=== PATIENT | female | born 1995 | race Two or more races ===

== ENCOUNTER 2017-01-27 10:40 | Emergency (ER) | payer MEDICAID ==
[2017-01-27 12:42] VITALS: BP 110/59
--- NOTE | 2017-01-27 13:23 | ED Physician Documentation ---
History of Present Illness - Stated complaint Stated Complaint: HEADACHE/VISION CHANGE 8WKS PREG - Chief complaint Chief Complaint: Neuro - History obtained from History obtained from: Patient (Pt is 8 weeks EGA wih second child and has a headache. she staes that she has had headaches in the past but has not had one in years. She states that she had pre-e on her first and came in today to have her HTN checked.) Review of Systems Constitutional: denies: Fever, Chills Eyes: denies: Loss of vision, Photophobia Ears: denies: Ear pain, Tinnitus/ringing Throat: denies: Sore throat Cardiac: denies: Chest pain / pressure, Palpitations Respiratory: denies: Dyspnea, Cough, Hemoptysis, Wheezing GI: denies: Abdominal Pain, Nausea, Vomiting, Constipation, Diarrhea : denies: Dysuria, Frequency Skin: denies: Rash, Lesions Musculoskeletal: denies: Neck pain, Back pain Neurologic: reports: Headache. denies: Altered mental status, Head injury, LOC PD PAST MEDICAL HISTORY - Past Surgical History Past Surgical History: No - Present Medications Home Medications: Ambulatory Orders Medication Instructions Recorded Confirmed Pnv No.122/Iron/Folic Acid 1 tab PO DAILY 01/27/17 01/27/17 [ Multi Tablet] - Allergies Allergies/Adverse Reactions: Allergies Allergy/AdvReac Type Severity Reaction Status Date / Time No Known Drug Allergies Allergy Verified 04/19/15 23:01 - Social History Does the pt smoke?: No Smoking Status: Never smoker Does the pt drink ETOH?: No Does the pt have substance abuse?: No - POLST Patient has POLST: No PD ED PE NORMAL - Vitals Vital signs reviewed: Yes - General General: Alert and oriented X 3, No acute distress, Well developed/nourished - HEENT HEENT: Atraumatic, PERRL, EOMI, Ears normal, Moist mucous membranes - Cardiac Cardiac: RRR, No murmur - Respiratory Respiratory: No respiratory distress, Clear bilaterally - Abdomen Abdomen: Non tender, Non distended - Back Back: No CVA TTP - Derm Derm: Normal color, Warm and dry, No rash - Extremities Extremities: No deformity, No edema - Neuro Neuro: Alert and oriented X 3, occupational health nurse manager 2-12 intact, No motor deficit, No sensory deficit, Normal speech Eye Opening: Spontaneous Motor: Obeys Commands Verbal: Oriented GCS Score: 15 - Psych Psych: Normal mood, Normal affect Results - Vitals Vitals: Vital Signs - 24 hr 01/27/17 01/27/17 10:51 12:41 Temperature 36.2 C L 36.5 C Heart Rate 80 73 Respiratory 18 16 Rate Blood Pressure 121/68 110/59 L O2 Saturation 99 100 Oxygen O2 Source Room air PD MEDICAL DECISION MAKING - ED course Complexity details: d/w patient ED course: Pt looks well, normal neuro exam. no related symptoms today. Doubt meningitis or SAH or trauma. informed pt that she should not take motrin while she is . she will take tylenol. She has a follow up with her OB next week. Departure - Departure Disposition: 01 Home, Self Care Clinical Impression: Headache Qualifiers: Headache type: unspecified Headache chronicity pattern: unspecified pattern Intractability: not intractable Qualified Code(s): R51 - Headache Condition: Good Instructions: ED Cephalgia Unspecified Follow-Up: primary,care provider [Other] Comments: Keep your OB appointment. Return to the ER for any new or worsening symptoms.
== END 2017-01-27 13:40 | disposition home or self-care (01) ==
LOC: ED 10:40
DX: O26.891 Other specified pregnancy related conditions, first trimester (principal); R51 Headache; Z3A.08 8 weeks gestation of pregnancy
CPT/HCPCS: 99282; 99283

== ENCOUNTER 2017-02-25 08:00 | Outpatient (CLI) | payer MEDICAID | END 2017-02-25 08:01 | disposition home or self-care (01) | LOC: LAB.R 08:00 | PROVIDERS: ATTEND Obstetrics & Gynecology | DX: Z11.3 Encounter for screening for infections with a predominantly sexual mode of transmission (principal) | CPT/HCPCS: 87491; 87591 ==

== ENCOUNTER 2017-03-05 14:12 | Outpatient (CLI) | payer MEDICAID ==
[2017-03-05 14:59] LABS: ALBUMIN 3.7 g/dL (3.2-5.5); ALBUMIN/GLOBULIN RATIO 1.3 (1.0-2.2); BILIRUBIN,TOTAL 0.4 mg/dL (0.2-1.0); CREATININE 0.3 mg/dL (0.4-1.0); TOTAL PROTEIN 6.6 g/dL (6.7-8.2)
[2017-03-05 15:46] LABS: BILIRUBIN,URINE NEGATIVE (NEGATIVE); GLUCOSE, URINE (UA) NEGATIVE (NEGATIVE); KETONES,URINE (UA) NEGATIVE (NEGATIVE); LEUKOCYTE ESTERASE, URINE TRACE (NEGATIVE); NITRITE,URINE NEGATIVE (NEGATIVE); OCCULT BLOOD,URINE NEGATIVE (NEGATIVE); PROTEIN,URINE NEGATIVE (NEGATIVE); UROBILINOGEN,URINE 0.2 (NORMAL) E.U./dL (NORMAL)
[2017-03-05 15:58] LABS: CLARITY,URINE HAZY (CLEAR)
[2017-03-05 16:46] LABS: BASOPHILS % (AUTO) 0.2 %; EOSINOPHILS # (AUTO) 0.1 10^3/uL (0.0-0.7); EOSINOPHILS % (AUTO) 1.1 %; HGB - HEMOGLOBIN 13.4 g/dL (12.0-16.0); LYMPHOCYTES # (AUTO) 2.2 10^3/uL (1.5-3.5); LYMPHOCYTES % (AUTO) 24.6 %; MEAN CORPUSCULAR HEMOGLOBIN 32.4 pg (27.0-31.0); MEAN CORPUSCULAR HGB CONC 35.7 g/dL (32.0-36.0); MEAN CORPUSCULAR VOLUME 90.9 fL (81.0-99.0); MEAN PLATELET VOLUME 9.6 fL (7.9-10.8); MONOCYTES # (AUTO) 0.5 10^3/uL (0.0-1.0); MONOCYTES % (AUTO) 5.9 %; NEUTROPHILS % (AUTO) 68.2 %; PLT - PLATELET COUNT 212 10^3/uL (130-450); RED BLOOD COUNT 4.13 10^6/uL (4.20-5.40); RED CELL DISTRIBUTION WIDTH 13.1 % (12.0-15.0); WHITE BLOOD COUNT 8.8 x10^3/uL (4.8-10.8)
[2017-03-05 16:49] LABS: RBC,URINE 0-5 /HPF (0-5); SQUAMOUS EPITHELIAL CELL,UR MOD Squamous (<= Few)
[2017-03-05 16:50] LABS: BACTERIA,URINE Few /HPF (None Seen)
[2017-03-06 09:31] LABS: HEPATITIS B SURFACE ANTIGEN NON-REACTIVE (NON-REACTIVE)
[2017-03-06 10:22] LABS: HIV AG/AB 4TH GEN NON-REACTIVE (NON-REACTIVE)
== END 2017-03-05 14:13 | disposition home or self-care (01) ==
LOC: LAB 14:12
PROVIDERS: ATTEND Obstetrics & Gynecology
DX: O10.011 Pre-existing essential hypertension complicating pregnancy, first trimester (principal); Z36.9 Encounter for antenatal screening, unspecified
CPT/HCPCS: 36415; 80053; 81001; 81599; 85025; 86592; 86762; 86850; 86900; 86901; 87340; 87389

== ENCOUNTER 2017-04-19 12:19 | Outpatient (CLI) | payer MEDICAID ==
--- NOTE | 2017-04-22 13:41 | Ultrasound Report ---
OB ULTRASOUND: 04/19/2017 CLINICAL INDICATION: anatomy. TECHNIQUE: Real-time scanning was performed with resources representative static images obtained. LAST MENSTRUAL PERIOD unsure CLINICAL AGE -- US AGE 19 weeks 4 days EFW HADLOCK 297 grams EFW% HADLOCK -- HEART RATE 144 bpm EDC -- US EDC 09/09/2017 BPD HADLOCK 19 weeks 2 days; Mean mm 43 HC HADLOCK 19 weeks 1 day ; Mean mm 164 AC HADLOCK 19 weeks 4 days; Mean mm 141 FL HADLOCK 19 weeks 5 days; Mean mm 31 PRESENTATION variable PLACENTAL LOCATION posterior/fundal CERVICAL LENGTH TA 5.7 cm AMNIOTIC FLUID subjectively normal MVP 4.8 cm FINDINGS There is a single viable intrauterine gestation, in variable position. heart rate is 144 BPM. The placenta is posterior, without evidence of previa. Amniotic fluid volume is subjectively normal, with a deepest pocket of 4.8 cm. By size, the fetus measures 19 weeks 4 days (uncertain LMP). The following anatomic structures were visualized and appear normal: The intracranial contents, including the ventricles and posterior fossa; the lips and orbits; the spine; the heart, including 4 chamber view and outflow tracts, and diaphragm; the abdominal contents, including the stomach, the bilateral kidneys, and urinary bladder, as well as a normal 3 vessel cord insertion; 4 limbs. No free fluid or adnexal lesion is appreciated. IMPRESSION: SINGLE VIABLE INTRAUTERINE GESTATION, MEASURING 19 WEEKS 4 DAYS BY SIZE. NORMAL ANATOMIC SURVEY. TD: 04/19/2017 17:19 TREVER
== END 2017-04-19 12:20 | disposition home or self-care (01) ==
LOC: DI 12:19
PROVIDERS: ATTEND Obstetrics & Gynecology
DX: Z36.9 Encounter for antenatal screening, unspecified (principal)
CPT/HCPCS: 76811

== ENCOUNTER 2017-05-17 17:04 | Outpatient (CLI) | payer MEDICAID ==
[2017-05-17 19:40] VITALS: BP 128/60
== END 2017-05-17 19:00 | disposition home or self-care (01) ==
LOC: WFO 17:04 → FBP 17:05 → WFO 19:00
PROVIDERS: ATTEND Nurse Practitioner Obstetrics & Gynecology
DX: O47.02 False labor before 37 completed weeks of gestation, second trimester (principal); Z3A.23 23 weeks gestation of pregnancy
CPT/HCPCS: 99212

== ENCOUNTER 2017-05-21 08:00 | Outpatient (CLI) | payer MEDICAID | END 2017-05-21 23:59 | disposition home or self-care (01) | LOC: LAB.R 08:00 | PROVIDERS: ATTEND Nurse Practitioner Obstetrics & Gynecology | DX: N76.0 Acute vaginitis (principal) | CPT/HCPCS: 87480; 87510; 87660 ==

== ENCOUNTER 2017-06-19 08:06 | Outpatient (CLI) | payer MEDICAID ==
[2017-06-19 09:30] LABS: HGB - HEMOGLOBIN 12.2 g/dL (12.0-16.0); MEAN CORPUSCULAR HEMOGLOBIN 32.4 pg (27.0-31.0); MEAN CORPUSCULAR HGB CONC 34.8 g/dL (32.0-36.0); MEAN CORPUSCULAR VOLUME 93.1 fL (81.0-99.0); MEAN PLATELET VOLUME 8.2 fL (7.9-10.8); RED BLOOD COUNT 3.77 10^6/uL (4.20-5.40); RED CELL DISTRIBUTION WIDTH 12.8 % (12.0-15.0); WHITE BLOOD COUNT 8.2 x10^3/uL (4.8-10.8)
== END 2017-06-19 08:07 | disposition home or self-care (01) ==
LOC: LAB 08:06
PROVIDERS: ATTEND Nurse Practitioner Obstetrics & Gynecology
DX: Z34.90 Encounter for supervision of normal pregnancy, unspecified, unspecified trimester (principal)
CPT/HCPCS: 36415; 82950; 86850

== ENCOUNTER 2017-06-26 08:25 | Outpatient (CLI) | payer MEDICAID | END 2017-06-26 08:26 | disposition home or self-care (01) | LOC: LAB 08:25 | PROVIDERS: ATTEND Nurse Practitioner Obstetrics & Gynecology | DX: R73.02 Impaired glucose tolerance (oral) (principal) | CPT/HCPCS: 36415; 82951 ==

== ENCOUNTER 2017-08-19 14:48 | Outpatient (CLI) | payer MEDICAID | END 2017-08-19 14:49 | disposition home or self-care (01) | LOC: LAB.R 14:48 | PROVIDERS: ATTEND Registered Nurse | DX: Z34.83 Encounter for supervision of other normal pregnancy, third trimester (principal) | CPT/HCPCS: 87081 ==

== ENCOUNTER 2017-08-26 12:38 | Outpatient (CLI) | payer MEDICAID ==
[2017-08-26 13:14] LABS: BASOPHILS % (AUTO) 0.5 %; EOSINOPHILS % (AUTO) 0.5 %; HGB - HEMOGLOBIN 12.2 g/dL (12.0-16.0); LYMPHOCYTES % (AUTO) 23.5 %; MEAN CORPUSCULAR HEMOGLOBIN 31.8 pg (27.0-31.0); MEAN CORPUSCULAR HGB CONC 34.1 g/dL (32.0-36.0); MEAN CORPUSCULAR VOLUME 93.4 fL (81.0-99.0); MEAN PLATELET VOLUME 9.7 fL (7.9-10.8); MONOCYTES # (AUTO) 0.4 10^3/uL (0.0-1.0); NEUTROPHILS # (AUTO) 5.9 10^3/uL (1.5-6.6); NEUTROPHILS % (AUTO) 70.5 %; PLT - PLATELET COUNT 228 10^3/uL (130-450); RED BLOOD COUNT 3.82 10^6/uL (4.20-5.40); RED CELL DISTRIBUTION WIDTH 14.2 % (12.0-15.0); WHITE BLOOD COUNT 8.3 x10^3/uL (4.8-10.8)
[2017-08-26 13:25] LABS: URIC ACID 6.8 mg/dL (2.6-7.2)
[2017-08-26 13:56] LABS: CREATININE,URINE 139.2 mg/dL; PROTEIN/CREATININE RATIO,URINE 0.1 (<=0.2)
[2017-08-26 13:59] VITALS: BP 144/81
== END 2017-08-26 14:43 | disposition home or self-care (01) ==
LOC: WFO 12:38 → FBP 12:40 → WFO 14:43
PROVIDERS: ATTEND Registered Nurse
DX: O13.3 Gestational [pregnancy-induced] hypertension without significant proteinuria, third trimester (principal); O24.419 Gestational diabetes mellitus in pregnancy, unspecified control; Z3A.38 38 weeks gestation of pregnancy
CPT/HCPCS: 36415; 59025; 82570; 83615; 84156; 84450; 84550; 85025

== ENCOUNTER 2017-08-26 14:52 | Inpatient (IN) | payer MEDICAID ==
[2017-08-26] MEDS ORDERED: OXYTOCIN/SODIUM CHLORIDE 250 ML IV ONE (17:06)
[2017-08-26] MEDS ORDERED: ONDANSETRON 4 MG/2 ML VIAL IVP PRN (17:06)
[2017-08-26] MEDS ORDERED: fentaNYL 100 MCG/2 ML VIAL IVP PRN (17:06)
[2017-08-26] MEDS ORDERED: ONDANSETRON ODT 4 MG TABLET TL PRN (17:06)
[2017-08-26] MEDS ORDERED: DINOPROSTONE 10 MG SUPP VG ONE (17:06)
[2017-08-26] MEDS ORDERED: ZOLPIDEM 5 MG TABLET PO PRN (17:11)
[2017-08-26] MEDS ORDERED: LACTATED RINGERS 1,000 ML IV SCH (18:00)
[2017-08-26] MEDS: SODIUM CHLORIDE FLUSH 0.9% 10 ML SYRINGE IVP PRN (18:58)
[2017-08-26 19:24] LABS: BASOPHILS # (AUTO) 0.1 10^3/uL (0.0-0.1); BASOPHILS % (AUTO) 0.6 %; EOSINOPHILS % (AUTO) 0.6 %; HGB - HEMOGLOBIN 11.8 g/dL (12.0-16.0); LYMPHOCYTES # (AUTO) 2.1 10^3/uL (1.5-3.5); LYMPHOCYTES % (AUTO) 25.8 %; MEAN CORPUSCULAR HEMOGLOBIN 32.5 pg (27.0-31.0); MEAN CORPUSCULAR HGB CONC 34.6 g/dL (32.0-36.0); MEAN CORPUSCULAR VOLUME 93.8 fL (81.0-99.0); MEAN PLATELET VOLUME 10.4 fL (7.9-10.8); MONOCYTES # (AUTO) 0.6 10^3/uL (0.0-1.0); MONOCYTES % (AUTO) 6.7 %; NEUTROPHILS # (AUTO) 5.5 10^3/uL (1.5-6.6); NEUTROPHILS % (AUTO) 66.3 %; PLT - PLATELET COUNT 226 10^3/uL (130-450); RED BLOOD COUNT 3.64 10^6/uL (4.20-5.40); RED CELL DISTRIBUTION WIDTH 14.1 % (12.0-15.0); WHITE BLOOD COUNT 8.3 x10^3/uL (4.8-10.8)
--- NOTE | 2017-08-27 00:03 | HISTORY & PHYSICAL EXAMINATION ---
Admit History - Instructions Kenaitze/Slash: -Left hand click circles element as positive or present. -Right hand click slashes element as negative or not present. - Visit Reason Visit Reason: Other (preinduction cervical ripening secondary to gestational HTN ) - : 2 Parity: 1 Premature: 0 Ectopic: 0 : 0 Care: positive: [facility] (beginning at 9 weeks' gestation x14 total visits) Complications This : positive: induced HTN (BPs 150s/90s @ 38 weeks' gestation) Smoking Status: Former smoker - Mother's Labs Mother's Blood Type: positive: A Mother's RH: positive: Positive GBS: positive: Group B Step Negative Rubella Status: positive: Non-immune Meds/Allgy - Home Medications Home Medications: Ambulatory Orders Medication Instructions Recorded Confirmed Pnv No.122/Iron/Folic Acid 1 tab PO DAILY 01/27/17 01/27/17 [ Multi Tablet] - Allergies Allergies/Adverse Reactions: Allergies Allergy/AdvReac Type Severity Reaction Status Date / Time No Known Drug Allergies Allergy Verified 04/19/15 23:01 Review of Systems - Constitutional Constitutional: reports: Fatigue. denies: Fever, Chills - Eyes Eyes: denies: Blurred vision, Spots in vision, Dipolpia - Cardiovascular Cariovascular: reports: Edema. denies: Irregular heart rate, Palpitations, Chest pain - Respiratory Respiratory: reports: SOB with exertion. denies: Cough, Sputum production, SOB at rest - Gastrointestinal Gastrointestinal: denies: Abdominal pain, Abdominal distention, Constipation, Diarrhea, Change in bowel habits, Nausea, Vomiting - Genitourinary Genitourinary: reports: Frequency, Urgency. denies: Dysuria - Musculoskeletal Musculoskeletal: reports: Back pain. denies: Muscle pain, Muscle aches, Limited range of motion - Integumentary Integumentary: denies: Rash, Pruritis, Lesions, Dryness - Neurological Neurological: denies: General weakness, Focal weakness, Headache, Dizziness, Numbness - Psychiatric Psychiatric: reports: Anxiety. denies: Depression - All Other Systems All Other Systems: reports: Other (+FM, no LOF, no VB) Physical - Abdominal Exam Vital Signs: Temp Pulse Resp BP Pulse Ox 36.9 C 85 18 138/67 H 97 08/26/17 17:50 08/26/17 17:50 08/26/17 17:50 08/26/17 17:50 08/26/17 17:50 Contraction Frequency (min/apart): rare Uterine Resting Tone: positive: Soft - Monitoring Heart Rate Baseline: 140 Strip Review: positive: Category I - Presentation Presentation: positive: Vertex - Vaginal Exam Membranes: positive: Membranes intact Dilation (in cm): 2 Effacement (%): 50 Station: positive: -3 Cervical Position: positive: Posterior - Speculum Exam Speculum Exam Performed: positive: No Findings: negative: Gross leak - Other Notes Labor Progress Note/Additional Text: Parag Ireland is a 22 y/o @ 38 weeks' gestation whose was complicated by hx of GHTN w/ normal baseline PET labs, lumbar back pain responsive to support belt & acute care registered nurse, bacterial vaginosis, oral thrush & GHTN w/o s/sx PET identified @ 38 weeks' gestation. She presents w/ unfavorable cervical status for preinduction cervical ripening. She is not having discomfort & denies LOF/VB. She reports good FM. PMH:obesity PsurgH: none POBhx: 05/2015 7#7oz, IOL for GHTN, epidural didn't work, male, Carlos PgynHx: BV, recurrent, yeast, recurrent, no hx STI, NILM pap hx Famhx: notable for many members affected by substance use disorders, many members affected by anxiety/depression SocHx: Partnered to Uriah, denies DV, works f/t in retail capacity, denies tob/ ETOH/drugs, expecting female TARUN PE: GEN: AAOx3, NAD [place] gravid female HEENT: L lid ptosis, otherwise normocephalic RESP: lungs b/l cta t/o CARDIAC: RRR nl s1s2, no murmur GI: gravid, NT, lie longitudinal, presentation cephalic, EFW 7.5-8# : no lesion, no abnormal exudate/bleeding SVE per Chichi Good CNM, /-3 today OB: Occ rare contractions, EFM BL 140bpm, +accels, no decels, mod damaris MS: FROM t/o, +1 pitting b/l pedal edema SKIN: warm, well-perfused, c/d/i, no lesion NEURO: no focal deficit, LE DTRs +2, no clonus PSYCH: very anxious & intermittently tearful Plan for Labor - Plan For Labor I expect patient to be DC'd or transferred within 96 hours.: Yes Plan for Labor: Parag & Devin were initially very distressed about prospect of IOL. She has had a previously traumatic induction experience & was hoping to avoid IOL this time. She initially requested to leave AMA. On further discussion re : pathophysiology of GHTN & rationale for recommendation for IOL as well as management options for discomfort & IOL, Parag agrees that IOL @ this time is in the interest of her & understands the importance of preinduction cervical ripening. 1. Admit to obs status for preinduction cervical ripening 2. Reviewed all options for management; Parag elects overnight cervidil placement w/ Ambien administration to facilitate maternal rest 3. Reassess cervical status in am & plan AROM vs. miso, reviewed @ length 4. Reviewed course of care w/ IOL & possibility for changes as clinically indicated, reviewed current plan of care @ length w/ pt, partner & RN @ bedside ; all in agreement without concerns.
[2017-08-27] MEDS ORDERED: SODIUM CHLORIDE FLUSH 0.9% 10 ML SYRINGE IVP SCH (01:00)
[2017-08-27 05:30] LABS: BASOPHILS % (AUTO) 0.6 %; EOSINOPHILS # (AUTO) 0.1 10^3/uL (0.0-0.7); EOSINOPHILS % (AUTO) 0.9 %; HGB - HEMOGLOBIN 11.8 g/dL (12.0-16.0); LYMPHOCYTES # (AUTO) 2.2 10^3/uL (1.5-3.5); LYMPHOCYTES % (AUTO) 28.3 %; MEAN CORPUSCULAR HEMOGLOBIN 32.2 pg (27.0-31.0); MEAN CORPUSCULAR VOLUME 94.9 fL (81.0-99.0); MEAN PLATELET VOLUME 9.8 fL (7.9-10.8); MONOCYTES # (AUTO) 0.6 10^3/uL (0.0-1.0); NEUTROPHILS # (AUTO) 4.8 10^3/uL (1.5-6.6); NEUTROPHILS % (AUTO) 62.2 %; PLT - PLATELET COUNT 205 10^3/uL (130-450); RED BLOOD COUNT 3.66 10^6/uL (4.20-5.40); RED CELL DISTRIBUTION WIDTH 14.3 % (12.0-15.0); WHITE BLOOD COUNT 7.8 x10^3/uL (4.8-10.8)
[2017-08-27 05:38] LABS: URIC ACID 6.8 mg/dL (2.6-7.2)
--- NOTE | 2017-08-27 09:33 | PROVIDER PROGRESS NOTE ---
Labor Progress Note - Uterine Monitoring Uterine Monitoring Mode: positive: External toco Contraction Frequency (min/apart): rare Uterine Resting Tone: positive: Soft - Monitoring Monitor Mode: positive: External ultrasound Heart Rate Baseline: 140 Heart Rate Variability: positive: Moderate (6-25 bmp) Accelerations: positive: Present, 15x15 Decelerations: positive: None Strip Review: positive: Category I - Vaginal Exam Dilation (in cm): 3 Effacement (%): 70 Station: -2 Cervical Position: Midposition (medium consistency) - Labor Progress Note Labor Progress Note/Additional Text: S: Parag is feeling well. She denies discomfort. She denies FLETCHER or visual disturbance. She is not having pain w/ her rare uterine contractions. She has had some mucoid vaginal d/c, no bleeding, no LOF. O: AAOx3, NAD [place] female VSS: BP most recently 139/65 EFM BL 140bpm, +accels, no decels, mod variability TOCO: rare contractions SVE: 3/70/-2, medium, midposition A: 22 y/o @ 38w1d gestation by early 1st trimester US, IOL for ghtn Presently normotensive, no features of pre-eclampsia, no severe-range BPs IBOW, GBS negative s/p cervidil x12 hours w/ minimal cervical change Not in labor Adequate pain control w/o analgesia/anesthesia, hoping to avoid epidural placement FHTs cat I P: 1. Extensive review of options for management 2. Pt elects bc misoprostol 50mcg q 4 hours to induce further cervical favorability, PARQ held 3. Reviewed optimal maternal positioning to facilitate descent 4. Reviewed pain management options at length 5. Reassess cervical status 4 hours s/p misoprostol; if unchanged, administer 2nd dose, if actively changing cervix, will re-evaluate course of care 6. Ongoing careful monitoring of BP w/ intervention as clinically warranted 7. Reviewed plan of care w/ pt, partner, RN @ bedside; all in agreement, without concerns
--- NOTE | 2017-08-27 10:47 | PROVIDER PROGRESS NOTE ---
Labor Progress Note - Uterine Monitoring Uterine Monitoring Mode: positive: IUPC Contraction Frequency (min/apart): 3-5 minutes baseline 20mmHg, peak 70mmHg, MVU 100 Contraction Intensity: positive: Moderate to strong Uterine Resting Tone: positive: Soft - Monitoring Monitor Mode: positive: External ultrasound, Spiral electrode (FSE placed w/o incident) Heart Rate Baseline: 140 Heart Rate Variability: positive: Moderate (6-25 bmp) Accelerations: positive: Present, 15x15 Decelerations: positive: Early (discernible once FSE placed), Prolonged (> 2x10 min) (prolonged deceleration x1 to clarence in 80s w/ return to baseline w/ maternal position change to H&K, FSE placed w/o incident to ensure accuracy of FHR tracing) Strip Review: positive: Category II - Vaginal Exam Dilation (in cm): 8 Effacement (%): 100 Station: 0 Cervical Position: Anterior - Labor Progress Note Labor Progress Note/Additional Text: Called to see patient secondary to prolonged deceleration x1 to clarence in 80s w/ return to baseline over a period of 4.5 minutes w/ maternal position change from R lateral to L lateral & finally to H&K, IV fluid bolus infusing, O2 administered via non-rebreather face mask. FHTs 130bpm upon my arrival, FSE applied w/ ease & pt assisted in remaining in H&K positioning, SVE 8/100/0, despite inadequate contraction pattern per MVU, Pitocin infused only momentarily @ 2mU/min, discontinued w/ deceleration. Will continue to carefully observe FHTs & initiate intrauterine resuscitative measures as clinically indicated, resume Pitocin infusion & titrate per IUPC to achieve & maintain adequate labor pattern once FHTs cat I x30 minutes consistently. Reviewed implications of prolonged deceleration at this stage in labor & reviewed increased risk for intolerance of labor. Reviewed plan of care w / pt, pt's family & RN @ bedside; all in agreement, without concerns.
[2017-08-27] MEDS: miSOPROStol 100 MCG TABLET BC SCH ×2 (17:36→22:41)
--- NOTE | 2017-08-27 18:09 | PROVIDER PROGRESS NOTE ---
Labor Progress Note - Uterine Monitoring Uterine Monitoring Mode: positive: External toco Contraction Frequency (min/apart): rare Contraction Intensity: positive: Mild Uterine Resting Tone: positive: Soft - Monitoring Monitor Mode: positive: External ultrasound Heart Rate Baseline: 140 Heart Rate Variability: positive: Moderate (6-25 bmp) Accelerations: positive: Present, 15x15 Decelerations: positive: None Strip Review: positive: Category I - Vaginal Exam Dilation (in cm): deferred - Labor Progress Note Labor Progress Note/Additional Text: S: Parag is frustrated by the delay in her ongoing preinduction cervical ripening. She has had intermittent uterine contractions, generally minimally uncomfortable, t/o the day & has felt like a lot of the day was "wasted." She denies FLETCHER/visual disturbance/abdominal pain. She denies bloody show or LOF. She is eager to get her IOL underway. Devin is present @ the bedside & is involved & very supportive. O: AAOx3, NAD [place] obese gravid female VSS: BPs 140s/80s consistently EFM BL 140bpm, mod damaris, +accels, no decels TOCO: rare contractions SVE: deferred A: 22 y/o @ 38w1d by early 1st trimester US, preinduction cervical ripening for gestational HTN w/o s/sx PET Normotensive @ present w/o severe-range BPs s/p cervidil x12 hours w/ minimal cervical change, s/p 1 dose 50mcg misoprostol BC 30 minutes ago FHTs cat I GBS negative, IBOW Adequate pain control w/o analgesia/anesthesia P: 1. Reviewed indication for induction & importance of patient/persistent cervical ripening 2. continue misoprostol 50mcg q4hrs BC 3. Reassess cervical status w/ clinical change 4. AROM w/ active cervical change 5. Analgesia/anesthesia PRN per pt request 6. Ongoing careful BP monitoring w/ intervention as clinically warranted 7. Reviewed plan of care w/ pt, partner & RN @ bedside; all in agreement, without concerns.
[2017-08-27] MEDS: SODIUM CHLORIDE FLUSH 0.9% 10 ML SYRINGE IVP PRN (20:21)
[2017-08-27 23:50] LABS: BILIRUBIN,URINE NEGATIVE (NEGATIVE); GLUCOSE, URINE (UA) NEGATIVE (NEGATIVE); KETONES,URINE (UA) NEGATIVE (NEGATIVE); LEUKOCYTE ESTERASE, URINE NEGATIVE (NEGATIVE); NITRITE,URINE NEGATIVE (NEGATIVE); OCCULT BLOOD,URINE NEGATIVE (NEGATIVE); PH,URINE 6.5 PH (5.0-7.5); PROTEIN,URINE NEGATIVE (NEGATIVE); UROBILINOGEN,URINE 0.2 (NORMAL) E.U./dL (NORMAL)
[2017-08-27 23:56] LABS: CLARITY,URINE CLEAR (CLEAR)
[2017-08-28] MEDS ORDERED: OXYTOCIN/SODIUM CHLORIDE 500 ML IV ONE (00:03)
[2017-08-28 00:09] LABS: PROTEIN/CREATININE RATIO,URINE 0.1 (<=0.2)
--- NOTE | 2017-08-28 00:49 | DELIVERY NOTE ---
Delivery Note - Labor Labor: positive: Other (s/p cervidil x1 dose, then misoprostol x2 doses (54629 & [id number])) - Presentation Presentation: positive: Vertex, ARAM - right occiput anterior - Nuchal Cord Nuchal Cord: positive: Present (x1, loose) - Anesthetic Anesthetic Type: - Amniotic Fluid Description Amniotic Fluid Description: positive: Clear ( delivered en caul, SROM w/ emergence) - Episiotomy Type Episiotomy Type: positive: None - Laceration Laceration: positive: None - Delivery Outcome Delivery Outcome: positive: Livebirth - : positive: Placed in direct skin contact with mother, Stimulated, Warmed , [place] used sex: positive: Female - Cord Cord: positive: 3 vessels - Placenta Placenta: positive: Intact, Spontaneous - Estimated Blood Loss Estimated Blood Loss (in cc): 150 - Post Delivery Events Post Delivery Events: positive: No post delivery events - Delivery Comments (Free Text/Narrative) Delivery Comments (Free Text/Narrative): Parag Ireland is a 22 y/o [id number] who presented for preinduction cervical ripening for gestational HTN. She received an overnight dose of cervidil w/ minimal cervical change & thereafter received 2 buccal doses of 50mcg misoprostol. She entered active labor @ 23:45, when she was found to be 6cm dilated. She requested epidural anesthesia @ that point. FHTs were monitored t/ o & were consistently cat I. She progressed very rapidly from there to complete dilatation @ 0026, for a total first stage duration of 41 minutes. She did not have any signs of PET w/ severe features & did not require antihypertensive therapy to manage her BPs during the course of her hospital stay. She did not push & delivered a viable female infant en caul over an intact perineum in ARAM position @ 0028, for a total 2nd stage duration of 2 minutes. vigorous w/ spontaneous, lusty cry. Placed to maternal abdomen for drying/stim. Delayed cord clamping until cessation of pulsation, then cord clamped x2 by CNM, cut by FOB. 3VC noted, cord blood obtained. Active management of the 3rd stage of labor w/ Pitocin in IV fluids. Placenta delivered spontaneously & intact, Kavya, @ 0033, for a total 3rd stage duration of 5 minutes. Fundus firm @ U-1. Vagina & perineum inspected & found to be intact. Mother & stable; nuzzling breast w/in 20 minutes of delivery. Apgars 9/9, weight pending.
[2017-08-28] MEDS ORDERED: HYDROCORTISONE/PRAMOXINE 10 GM PR PRN (00:50)
[2017-08-28] MEDS ORDERED: oxyCODONE 5 MG TABLET PO PRN (00:50)
[2017-08-28] MEDS ORDERED: HYDROCORTISONE 1% CREAM 28 GM TUBE PR PRN (00:50)
[2017-08-28] MEDS ORDERED: WITCH HAZEL/GLYCERIN 1 EACH MED..PAD TOP PRN (00:50)
[2017-08-28] MEDS ORDERED: OXYTOCIN/SODIUM CHLORIDE 250 ML IV ONE (00:50)
[2017-08-28] MEDS: ACETAMINOPHEN 500 MG TABLET PO SCH ×3 (01:06→17:07)
--- NOTE | 2017-08-28 13:22 | PROVIDER PROGRESS NOTE ---
Subjective - Prog Note Date Prog Note Date: 08/28/17 Prog Note Time: 13:15 - Subjective Pt reports feeling: Improved Subjective: Parag is doing well. She is ambulating & voiding w/o difficulty. She is passing flatus & is tolerating a regular diet. She reports minimal cramping w/ nursing only. She has very light vaginal bleeding. She is exclusively w/o any difficulty. She is planning 8 weeks of leave from work. Uriah will not have time off but will be available to assist & she has additional excellent social support. She is feeling very positively about her delivery experience. Objective - Vital Signs/Intake & Output Reviewed Vital Signs: Yes Vital Signs: Vital Signs x48h Temp Pulse Resp BP Pulse Ox 08/28/17 13:07 72 16 144/84 H 98 08/28/17 08:00 36.9 C 82 16 130/76 98 Intake & Output: Intake & Output 08/25/17 08/26/17 08/27/17 08/28/17 23:59 23:59 23:59 23:59 Intake Total 2400 Output Total 450 Balance 1950 - Objective General Appearance: positive: No acute distress, Alert Eyes Bilateral: positive: PERRL, EOMI, Other (L lid ptosis) Respiratory: positive: Chest non-tender, No respiratory distress, Breath sounds nml Cardiovascular: positive: Regular rate & rhythm, No murmur, No gallop Abdomen: positive: Non-tender, No distention, Other (FF U-1) Skin: positive: Color nml, No rash, Warm, Dry Extremities: positive: Non-tender, Full ROM, Nml appearance, No pedal edema. negative: Calf tenderness, Sid's sign/cords Neurologic/Psychiatric: positive: Oriented x3, CN's nml (2-12), Motor nml, Sensation nml, Mood/affect nml Comments/Other: breasts b/l s, nt; nipples b/l intact & everted, colostrum readily expressible; perineum intact w/o erythema/edema/ecchymosis; minimal lochia rubra - Lab Results Fish Bones: 08/27/17 05:20 Other Labs: Lab Results x24hrs 08/27/17 08/27/17 Range/Units 23:30 23:30 Urine Color YELLOW Urine Clarity CLEAR (CLEAR) Urine pH 6.5 (5.0-7.5) PH Ur Specific [place] 1.010 (1.002-1.030) Urine Protein NEGATIVE (NEGATIVE) mg/dL Urine Glucose (UA) NEGATIVE (NEGATIVE) mg/dL Urine Ketones NEGATIVE (NEGATIVE) mg/dL Urine Occult Blood NEGATIVE (NEGATIVE) Urine Nitrite NEGATIVE (NEGATIVE) Urine Bilirubin NEGATIVE (NEGATIVE) Urine Urobilinogen 0.2 (NORMAL) (NORMAL) E.U./dL Ur Leukocyte Esterase NEGATIVE (NEGATIVE) Ur Microscopic Review NOT INDICATED Urine Culture Comments NOT INDICATED Urine Creatinine 68.0 mg/dL Ur Total Protein Timed 6 mg/dL Protein/Creatinin Ratio 0.1 (<=0.2) Assessment/Plan - Problem List (1) (normal spontaneous vaginal delivery) Impression: 22 y/o s/p 08/28/2017 s/p cervical ripening only for IOL for ghtn Normotensive Normal uterine involution Minimal lochia rubra well adequate pain control w/o opioid analgesia P: 1. continue routine pp care 2. support provided & to continue in ongoing fashion 3. Anticipate d/c home PPD#1, per pt request
[2017-08-28] MEDS: IBUPROFEN 600 MG TABLET PO SCH ×2 (15:14→21:15)
[2017-08-28] MEDS: DOCUSATE SODIUM 100 MG CAPSULE PO SCH ×2 (15:14→21:15)
[2017-08-29] MEDS: ACETAMINOPHEN 500 MG TABLET PO SCH ×2 (02:04→09:31)
[2017-08-29] MEDS: DOCUSATE SODIUM 100 MG CAPSULE PO SCH (09:31)
[2017-08-29] MEDS: IBUPROFEN 600 MG TABLET PO SCH (09:31)
--- NOTE | 2017-08-29 10:16 | Discharge Plan ---
Discharge Plan Disposition: 01 Home, Self Care Condition: Good Diet: Regular Activity Restrictions: pelvic rest x6 weeks Shower Restrictions: No Driving Restrictions: No Weight Bearing: Full Weight Instruction Topics: Vaginal After, Breastfeed How To, Preeclampsia, Exercises Kegel No Smoking: If you smoke, Please STOP! Call for help. Follow-up with: Kenney Vasquez CNM, MAE [Provider Admit Priv/Credential] -
--- NOTE | 2017-08-29 10:27 | DISCHARGE SUMMARY ---
"Discharge Summary Admit Date: 08/26/17 Discharge Date: 08/29/17 Discharging Provider: MARLYS Code Status: Attempt Resuscitation Condition at Discharge: Good Discharge Disposition: 01 Home, Self Care Discharge Facility Name: [facility] - DIAGNOSES Admission Diagnoses: GESTATIONAL HYPERTENSION Discharge Diagnoses with Status of Each Condition: - HPI History of Present Illness: Praag was admitted for preinduction cervical ripening for induction of labor @ 38 weeks' gestation secondary to gestational HTN. She had no severe-range BPs & no s/sx severe PET. She received 10mg dinoprostone overnight w/ minimal resulting cervical change & then received a total of 2 doses of 50mcg buccal misoprostol, after which she rapidly progressed to complete dilatation & delivered vaginally a viable female en caul over intact perineum w/o complication or laceration. - CONSULTS | PROCEDURES Procedures: - HOSPITAL COURSE Hospital Course: , Reji pain is well-controlled w/o opioid analgesia. She is ambulating & voiding w/o difficulty. She is passing flatus & tolerating a regular diet. She is well w/o difficulty & reports a previously successful experience. She reports minimal lochia rubra. She denies hx of pp depression. She is not planning to return to work until 8 weeks ' pp. Her partner will have minimal time off to assist her, but she has additional excellent social support. She is not planning another in the near future & intends 8 week paragard placement for contraception. She is able to fully articulate pp warning s/sx, including pp depression s/sx, and pp aftercare instructions. She is ready to leave the hospital. - ALLERGIES Allergies/Adverse Reactions: Allergies Allergy/AdvReac Type Severity Reaction Status Date / Time No Known Drug Allergies Allergy Verified 04/19/15 23:01 - MEDICATIONS Home Medications: Ambulatory Orders Medication Instructions Recorded Confirmed Pnv No.122/Iron/Folic Acid 1 tab PO DAILY 01/27/17 01/27/17 [ Multi Tablet] Ibuprofen [Motrin] 600 mg PO Q6H #0 tablet 08/29/17 - PHYSICAL EXAM AT DISCHARGE General Appearance: positive: No acute distress, Alert Eyes Bilateral: positive: Normal inspection Respiratory: positive: Chest non-tender, No respiratory distress, Breath sounds nml Cardiovascular: positive: Regular rate & rhythm, No murmur, No gallop Abdomen: positive: Non-tender, No distention, Other (FFU-2) Skin: positive: Color nml, No rash, Warm, Dry Extremities: positive: Non-tender, Full ROM, Nml appearance, No pedal edema. negative: Calf tenderness, Sid's sign/cords Neurologic/Psychiatric: positive: Oriented x3, CN's nml (2-12), Motor nml, Sensation nml Physical Exam Other/Comments: breasts b/l filling, nt; nipples b/l intact & everted, copious colostrum readily expressible; perineum intact w/o erythema/edema/ecchymosis; minimal lochia rubra - LABS Result Diagrams: 08/27/17 05:20 - FOLLOW UP Follow Up: x1 week w/ trip [place] CNM - TIME SPENT Time Spent in Discharge (Minutes): 20"
[2017-08-29 11:08] VITALS: BP 128/70
--- NOTE | 2017-08-29 13:33 | Labor Flowsheet ---
Labor Flowsheet Datetime Report Generated by CPN: 08/29/2017 13:32 Datetime: 08/29/2017 04:44 VITAL SIGNS NBP Sys/Kyra/Mean (mmHg): 126 : 72 : 82 Pulse: 74 SpO2 (%): 97 LaborFlag: Labor Datetime: 08/28/2017 00:29 COMMUNICATION Communication: Provider at Bedside Provider Notified (Name): CNM Milagrosa Notification Reason: Status Update Datetime: 08/28/2017 00:28 STAGE 2 Pushing Progress: Descent with Pushing; with Pushing; Pushing Effectively with Contraction s Stage 2 Comments: by RNC Pruett Datetime: 08/28/2017 00:26 VAGINAL EXAM Dilatation (cm): 10.0 Effacement (%): 100 Station: 3 Datetime: 08/28/2017 00:22 Stage of : Labor Communication Comments: CNM to hospital directly for delivery Datetime: 08/28/2017 00:20 Exam by: Spear Membrane Status: Intact Datetime: 08/28/2017 00:16 ASSESSMENT A Monitor Mode: Telemetry FHR Baseline Rate : 125 FHR Baseline Changes: No Baseline Change Variability: Moderate 6-25 bpm Accelerations: 15X15 Decelerations: Variable Category: Category II Comments: variables to 110s x <10-15" Datetime: 08/28/2017 00:00 UTERINE ACTIVITY Monitor Mode: External Monitor Interventions for UA: [place] Adjusted Frequency (min): 2-3 Quality: Strong Duration (sec): 60-90 Pattern: Normal: <= 5 Contractions in 10 Minutes Resting Tone (Palpate): Relaxed Datetime: 08/27/2017 23:56 PATIENT CARE IV/Blood Work: IV Bolus Started; New IV Bag Hung; IV Bag Number @ 1 Datetime: 08/27/2017 23:30 I/O Interventions: Up to BR Datetime: 08/27/2017 23:16 Patient Position/Activity: Standing; Walking Datetime: 08/27/2017 22:42 MEDICATIONS Cervical Ripening Agents: Cytotec @ 50mcg Datetime: 08/27/2017 22:30 PAIN Pain Scale: 2 Pain Presence: Intermittent Pain Type: Cramping; Dull Pain Location: Back; Right Groin; Left Groin Pain Goal: 8 Pain Relief Measures: Comfort Measures Pain Coping: Breathing Through Contractions; Declines Medication or Epidural Datetime: 08/27/2017 22:10 Respirations: 18 Datetime: 08/27/2017 22:02 Medication Comments: Cytotec held so pt can have a snack per pt's request Datetime: 08/27/2017 21:00 Contraction Comments: mild-mod per palpation/pt report Comfort Measures: Breathing/Relaxation; Family Support Datetime: 08/27/2017 20:02 Temperature (C): 36.7 Monitor Interventions for FHR: Ultrasound Adjusted MATERNAL ASSESSMENT Level of Consciousness: Fully Conscious DTR's/Clonus: DTRs 3+; 1 Beat Clonus Headache: Denies Nausea/Vomiting: Denies RUQ Epigastric Pain: Denies Oxygen Method: Room Air TEACHING Instructional Method: Verbal; Patient Instructed; Family/Support Person Instructed; Verbalized Unde rstanding Plan of Care: Plan of Care Discussed; Induction Unit Routine: Bed; Unit Personnel; Handwashing; Monitoring; Safety/Fall Risk Prevention; Medi cations Labor/Induction: Cervical Ripening Pain Management: Epidural Related: Common Discomforts of ; Maternal Physical Changes; Activity and Rest Datetime: 08/27/2017 12:05 Patient Care Comments: reactive NST. Plan - will induce when staffing allows. Datetime: 08/27/2017 08:23 Vaginal Bleeding: None Cervix, Consistency: Moderate Cervix, Position: Midposition Teaching Comments: pt knows that she will be induced when staffing allows. Datetime: 08/27/2017 06:17 Breath Sounds, Left: Clear and Equal Breath Sounds, Right: Clear and Equal Datetime: 08/27/2017 05:11 Temperature Route: Oral Vital Sign Comments: Pt. sleeping soundly, denies complaints of discomfort
== END 2017-08-29 13:30 | disposition home or self-care (01) | DRG 775 ==
LOC: PREINTOOBSV 17:20 → UNDOADMOB 17:37 → FBP 17:37 → INTOOBSV 08-27 00:45 → OBSVTOIN 08-27 00:45 → FBP 08-27 00:45 → UNDOADMOB 08-28 00:25 → OBSVTOIN 08-28 00:25 → INTOOBSV 08-28 00:25
PROVIDERS: ADMIT Registered Nurse; ATTEND Registered Nurse
PROC: 10E0XZZ Delivery of Products of Conception, External Approach (ICD-10-PCS; principal; 2017-08-28)
DX: O13.4 Gestational [pregnancy-induced] hypertension without significant proteinuria, complicating childbirth (principal); O99.214 Obesity complicating childbirth; Z87.891 Personal history of nicotine dependence; Z86.19 Personal history of other infectious and parasitic diseases; Z3A.38 38 weeks gestation of pregnancy; Z37.0 Single live birth
CPT/HCPCS: 36415; 59200; 81001; 81003; 82565; 82570; 83615; 84156; 84450; 84550; 85025; 87086

== ENCOUNTER 2022-04-02 12:55 | Outpatient (CLI) | payer BC | END 2022-04-02 12:56 | disposition home or self-care (01) | LOC: LAB.N 12:55 | PROVIDERS: ATTEND Obstetrics & Gynecology | DX: Z01.812 Encounter for preprocedural laboratory examination (principal); Z20.822 Contact with and (suspected) exposure to COVID-19 ==

== ENCOUNTER 2022-04-03 07:23 | Day surgery (SDC) | payer BC ==
[2022-04-03] MEDS ORDERED: LACTATED RINGERS 1,000 ML IV ONE ×2 (07:33→10:26)
[2022-04-03] MEDS ORDERED: MIDAZOLAM 2 MG/2 ML VIAL ONE (07:40)
[2022-04-03] MEDS ORDERED: fentaNYL 100 MCG/2 ML VIAL ONE (07:40)
[2022-04-03] MEDS ORDERED: ROCURONIUM 50 MG/5 ML VIAL ONE (07:41)
[2022-04-03] MEDS ORDERED: PROPOFOL 200 MG/20 ML VIAL IVP ONE (07:41)
--- NOTE | 2022-04-03 07:44 | ANESTHESIA ---
Pre-Anesthesia VS, & Labs - Diagnosis desires sterilization - Procedure laparoscopic salpingectomy Height: 5 ft - NPO >8 hours - Is Patient ?: No - Lab Results Lab results reviewed: Yes Home Medications and Allergies Allergies/Adverse Reactions: Allergies Allergy/AdvReac Type Severity Reaction Status Date / Time No Known Drug Allergies Allergy Verified 04/19/15 23:01 Anes History & Medical History - Anesthetic History Anesthesia Complications: reports: No previous complications - Medical History Cardiovascular: reports: None Pulmonary: reports: None Gastrointestinal: reports: None Urinary: reports: None Musculoskeletal: reports: Osteoarthritis Endocrine/Autoimmune: reports: None Skin: reports: Eczema Smoking Status: Former smoker Exam General: Alert, Oriented x3, Cooperative Dental: WNL Mouth Openin Fingerbreadth Neck Mobility: Normal Mallampati classification: II Thyromental Distance: 4-6 cm Respiratory: Lungs clear, Normal breath sounds Cardiovascular: Regular rate Neurological: Normal speech Mental/Cognitive Status: Alert/Oriented X3, Normal for patient Cognitive Status: Within normal limits Plan Anesthesia Type: General Consent for Procedure(s) Verified and Reviewed: Yes Code Status: Attempt Resuscitation ASA classification: 2-Mild systemic disease Is this case an emergency?: No
[2022-04-03 07:52] LABS: HCG UR QUAL NEGATIVE
[2022-04-03] MEDS ORDERED: LIDOCAINE MPF 2%-EPI 1:200000 20 ML VIAL ONE (08:18)
[2022-04-03] MEDS ORDERED: BUPIVACAINE 0.5% PF 30 ML VIAL ONE (08:19)
[2022-04-03] MEDS ORDERED: ONDANSETRON 4 MG/2 ML VIAL ONE (09:04)
[2022-04-03] MEDS ORDERED: KETOROLAC 30 MG/ML VIAL ONE (09:04)
[2022-04-03] MEDS ORDERED: DEXAMETHASONE 4 MG/ML VIAL ONE (09:04)
[2022-04-03] MEDS ORDERED: PHENYLEPHRINE 10 MG/ML VIAL ONE (09:11)
[2022-04-03] MEDS ORDERED: NALOXONE 0.4 MG/ML VIAL IVP PRN (09:14)
[2022-04-03] MEDS ORDERED: ePHEDrine 50 MG/ML VIAL IVP PRN (09:14)
[2022-04-03] MEDS ORDERED: METOCLOPRAMIDE 10 MG/2 ML VIAL IVP PRN (09:14)
[2022-04-03] MEDS ORDERED: MORPHINE 2 MG/ML CARPUJECT IVP PRN (09:14)
[2022-04-03] MEDS ORDERED: ATROPINE ABBOJECT 1 MG/10 ML SYRINGE IVP PRN (09:14)
[2022-04-03] MEDS ORDERED: ONDANSETRON 4 MG/2 ML VIAL IVP PRN (09:14)
[2022-04-03] MEDS ORDERED: fentaNYL 100 MCG/2 ML VIAL IVP PRN (09:14)
[2022-04-03] MEDS ORDERED: HYDROmorphone 0.5 MG/0.5 ML SYRINGE IVP PRN (09:14)
[2022-04-03] MEDS ORDERED: BUPIVACAINE 0.5% PF 30 ML VIAL SUBQ ONE ×2 (09:34)
[2022-04-03] MEDS ORDERED: LIDOCAINE MPF 2%-EPI 1:200000 20 ML VIAL SUBQ ONE ×2 (09:34)
[2022-04-03] MEDS ORDERED: SUGAMMADEX 200 MG/2 ML VIAL IVP ONE (09:56)
[2022-04-03] MEDS ORDERED: LACTATED RINGERS 1,000 ML IV SCH (10:00)
[2022-04-03] MEDS ORDERED: SILVER NITRATE APPLICATOR TOP ONE (10:02)
--- NOTE | 2022-04-03 10:11 | OPERATIVE REPORT ---
Operative Report - General Procedure Date: 04/03/22 Planned Procedure: Laparoscopic bilateral salpingectomy IUD removal Pre-Op Diagnosis: Multiparity, desires permanent sterilization, desires IUD removal Procedure Performed: Laparoscopic bilateral salpingectomy IUD removal Post Op Diagnosis: Multiparity, desires permanent sterilization, desires IUD removal - Procedure Note Primary Surgeon: Anabell Roberts DO Secondary Surgeon: Edgar Gallo MD; assistance required for retraction and safe completion Anesthesia Provider: Yared Reid CRNA Anesthesia Technique: General ET tube Pathology: Bilateral fallopian tubes Estimated Blood Loss (mL): 20 Indications: Multiparity, desires permanent sterilization, desires IUD removal Findings: Normal appearing uterus, oviducts and ovaries Right oviduct and ovary with adhesions to posterior uterus. Bowel also adhered to posterior uterus. Normal appearing appendix Complications: None - Other Other Information/Narrative: Patient taken to OR where GETA obtained without difficulty. Placed in dorsal lithotomy position and prepped and draped in sterile fashion. Hudson speculum placed in vagina and anterior lip of cervix grasped with single tooth tenaculum. IUD strings grasped and IUD removed intact. Hulka uterine manipulator placed into uterus. Speculum and tenaculum removed. Attention then turned to abdomen where 5mm vertical skin incision made in umbilical fold. Veress needle carefully introduced into peritoneal cavity. Intraperitoneal placement confirmed with drop test and drop in intraabdominal pressure with CO2 gas insufflation. Trocar and sleeve advanced without difficulty into abdomen where intraabdominal placement confirmed with laparoscope. Two additional 5mm incisions made in pelvis bilaterally and trocars introduced under direct visualization. 2% lidocaine with epineprhine/0.5% bupivacaine injection prior to skin incisions x3. Aforementioned findings noted. Left fallopian tube grasped and LigaSure device used for transection along mesosalpinx up to uterine cornu. This was repeated on the right fallopian tube. Minor adhesiolysis required as right tube was adhered to posterior right uterus. Bowel also noted to be adhered to uterus but not directly to tube, and care was taken to avoid the bowel. Tubes removed through left 5mm port. Hemostasis at all dissection sites. Trocars removed under direct visualization. Pneumoperitoneum released. Umbilical trocar removed. 5mm incisions x3 were closed with 4-0 Monocryl and dermabond. Sponge, lap, needle, and instrument counts were correct x2. Patient taken to PACU in stable condition. Appreciate Edgar Gallo MD and Shaneka Candelario NP assistance for retraction and safe completion of procedures.
[2022-04-03] MEDS ORDERED: traMADol 50 MG TABLET PO SCH (11:00)
[2022-04-03] MEDS ORDERED: ACETAMINOPHEN 500 MG TABLET PO SCH (11:00)
[2022-04-03 11:14] VITALS: BP 118/70
--- NOTE | 2022-04-03 12:51 | ANESTHESIA POST OP EVALUATION ---
Anesthesia Post Eval - Post Anesthesia Eval Vitals: Last Vital Signs Temp 36.7 C 04/03/22 11:12 Pulse 74 04/03/22 11:12 Resp 16 04/03/22 11:12 BP 118/70 04/03/22 11:12 Pulse Ox 100 04/03/22 11:12 O2 Flow Rate 0 04/03/22 07:46 CV Function Including HR & BP: Stable Pain Control: Satisfactory Nausea & Vomiting: Negative Mental Status: Baseline Respiratory Status: Airway Patent Hydration Status: Satisfactory Anesthesia Complications: None
== END 2022-04-03 07:24 | disposition home or self-care (01) ==
LOC: SDS 07:23
PROVIDERS: ATTEND Obstetrics & Gynecology
PROC: 0UPD7HZ Removal of Contraceptive Device from Uterus and Cervix, Via Natural or Artificial Opening (ICD-10-PCS; 2022-04-03)
PROC: 0UT74ZZ Resection of Bilateral Fallopian Tubes, Percutaneous Endoscopic Approach (ICD-10-PCS; principal; 2022-04-03 09:15)
DX: Z30.2 Encounter for sterilization (principal)
CPT/HCPCS: 58301; 58661; 81025; A9270; J7120